=== PATIENT | female | born 1955 | race Caucasian/White ===

== ENCOUNTER → 2022-11-05 | Outpatient (CLI) | payer SELFPAY ==
--- NOTE | 2022-11-05 07:23 | CT_ITS ---
PROCEDURE: CT RIGHT KNEE WITHOUT CONTRAST REASON FOR EXAM: Female, 67 years old. Preoperative planning for the MakoPlasty Robotic knee surgery. Knee pain. TECHNIQUE: Transaxial CT of the hip, knee and ankle were obtained. Coronal and sagittal reconstruction images of the knee were provided. Individualized dose optimization techniques were used for this CT. COMPARISON: None. FINDINGS: Standard protocol for the preoperative planning for the MakoPlasty robotic knee surgery was performed. Osteoarthrosis of the hip, knee and tibiotalar joint. CT/Extremity Lower without Contra IMPRESSION: Preoperative MakoPlasty Robotic knee surgical CT evaluation with findings as described above. Electronically Signed: Karlos Galloway MD at 10:33 EDT ,
== END | disposition home or self-care (01) ==
LOC: CT 07:21
PROVIDERS: PCP Nurse Practitioner Family; Referring Provider Orthopaedic Surgery; Visit Provider Orthopaedic Surgery
DX: M17.11 Unilateral primary osteoarthritis, right knee (principal)
CPT/HCPCS: 73700

== ENCOUNTER 2022-11-25 05:34 | Day surgery (SDC) | payer SELFPAY ==
--- NOTE | 2022-10-31 08:37 | EKG12_ITS ---
Test Reason : PRE-OP Blood Pressure : / mmHG Vent. Rate : 106 BPM Atrial Rate : 106 BPM P-R Int : 126 ms QRS Dur : 074 ms QT Int : 348 ms P-R-T Axes : 060 003 069 degrees QTc Int : 462 ms Sinus tachycardia with occasional Premature ventricular complexes Otherwise normal ECG Confirmed by LOREE MUÑOZ, MADDIE ([id number]), book editor SHRADDHA MURRAY ([id number]) on 11/04/2022 8:41:25 AM Referred By: Charlie Alvarez Confirmed By:MADDIE RALPH MD
[2022-10-31 09:55] LABS: Absolute Lymphocyte Count 1.52 X10^3/uL (0.83-4.51); Basophil# 0.02 X10^3/uL; Basophil% 0.3 % (0-1); Eosinophil# 0.09 X10^3/uL; Eosinophils% 1.4 % (0-5); Hematocrit 40.6 % (37-47); Hemoglobin 13.8 g/dL (12.0-15.0); Lymphocyte # 1.52 X10^3/ul (0.83-4.51); Lymphocyte % 23.6 % (19-41); Mean Corpuscular Hgb 31.7 pg (27.0-32.0); Mean Corpuscular Volume 93.3 fL (81-99); Mean Platelet Vol. 10.4 fl (6.2-12.0); Monocyte# 0.79 X10^3/uL; Monocyte% 12.3 % (0-10); NRBC Flagged by Analyzer 0 % (0-5); Neutrophil % 62.1 % (47-70); Platelet Count 220 K/mm3 (150-450); RBC Distribution Width CV 13.6 % (11.6-14.6); RBC Distribution Width SD 46.6 fl (35.1-43.9); Red Blood Count 4.35 M/mm3 (4.2-5.4); White Blood Count 6.4 K/mm3 (4.4-11.0)
[2022-10-31 10:07] LABS: Partial Thromboplast Time 27.4 Seconds (24.1-36.2); Prothrombin Time (Protime)PT. 13.2 SECONDS (11.7-14.9)
[2022-10-31 10:17] LABS: Hemoglobin A1c 5.8 % (3.8-5.6)
[2022-10-31 10:27] LABS: Anion Gap 5 (5-15); BUN 14 mg/dL (7-18); BUN/Creat Ratio 20.8 RATIO (10-20); Calcium,Total 8.9 mg/dL (8.5-10.1); Chloride 109 mmol/L (98-107); Creatinine, Serum 0.67 mg/dL (0.55-1.02); EST Glomerular Filtration Rate 92 mL/min (>60); Est Glom Filt Rate - Afr Amer 112 mL/min (>60); Glucose 129 mg/dL (74-106); Potassium 3.7 mmol/L (3.5-5.1); Sodium Level 139 mmol/L (136-145)
[2022-10-31 10:29] LABS: Magnesium 2.4 mg/dL (1.6-2.6)
[2022-11-01 04:08] LABS: Fructosamine 259 umol/L (0-285)
[2022-11-25] VITALS (11 sets, daily range): BP systolic 128–159; BP diastolic 64–73; PULSE 82–105; RESP 12–21; TEMP 36.1–36.8; O2SAT 95–100; BMI 30.6
--- NOTE | 2022-11-25 | KNEE_PTH ---
PATIENT: BLANCA JOSUE LOC: [facility] – [place] U#:[id number] AGE/SX: 67/F ROOM: RE11/25/[address]: Dr. Charlie Alvarez DO : 1955 BED: DIS: 11/25/2022 SPEC #: [id number] RECD: 11/25/22 13:11 STATUS: NORMA TRAV #: [id number] NAYE: 11/25/22 00:[address]: Charlie Alvarez DEPT: SURGICAL PATHOLOGY RECD BY: Gabriele Teran ENTERED: 11/25/22 13:11 SP TYPE: TOTAL KNEE OTHR DR: Ese Gibbs, PARTS ASSEMBLER-C Tissues: Knee, NOS Procedures: Decalcification bone/plaque Surgery Specimen Level IV HEADER OPERATION: ERAS, right total knee replacement robotic arm assist PRE-OP DIAGNOSIS: Osteoarthritis right knee TISSUE SUBMITTED: Debrided bone and tissue right knee MICROSCOPIC DIAGNOSIS Bone and soft tissue, right knee, total knee replacement/resection: Pieces of bone with degenerative osteoarthritic changes. Fragments of fibrocartilaginous tissue and reactive synovial tissue. SHARON:scot 11/28/2022 MICROSCOPIC DESCRIPTION Slides are reviewed. GROSS DESCRIPTION Received is one container designated bone and soft tissue right knee. The specimen consists of multiple fragments of almaguer-yellow bone measuring in aggregate 9.0 x 8.0 x 3.0 cm. Also in the specimen container are multiple fragments of indurated, cartilaginous tissue measuring in aggregate 4.5 x 2.5 x 0.8 cm. A number of bony fragments contain articular surfaces consistent with tibial plateau and femoral condyle and displaying prominent osteophyte formation and bone erosion. Systems Analyst Engineer sections are submitted in two cassettes as follows: 1 - soft tissue, 2 - bone after decalcification. / SHARON:scot 11/25/2022 :5 [facility]: [id number]
[2022-11-25] MEDS: Lactated Ringers 1,000 ML 15 ML IV (05:45)
[2022-11-25] MEDS: Magnesium 1 GM over 15 mins IV (06:20)
[2022-11-25] MEDS: Acetaminophen 500 MG Tablet 1000 MG PO (06:45)
[2022-11-25] MEDS: Celecoxib 200 MG Capsule 400 MG PO (06:45)
[2022-11-25] MEDS: Scopolamine 1mg/72hr Patch 1 PATCH TD (06:45)
[2022-11-25] MEDS: Gabapentin 600 MG Tablet PO (06:45)
[2022-11-25 07:01] LABS: Bedside Glucose 116 mg/dL (74-106)
--- NOTE | 2022-11-25 07:12 | PCM.HP.BLA ---
History and Physical Date of Admission: 11/25/22 [facility] [address] [place] [address] OFFICE VISIT Date of Service:? 10/15/22 MR#: [id number] Acct: [id number] Name:BLANCA SMITH Rep #: [id number] : 1955 ? ? Provider: Dr. Charlie Alvarez, Age/Sex:? 67/F ? ? [place] [facility] [place] Status: Signed Intake Vital Signs ? 10/15/2308:34 Height 5 ft 5 in Weight: 183 lb BMI 30.4 Intake Visit Reasons:?RIGHT KNEE Is patient in pain?: Yes Allergies No Known Allergies Allergy (Unverified 10/15/22 09:34) Medications acetaminophen 650 mg tablet,extended release (Tylenol Arthritis Pain) 650 mg PO Q12H 10/15/22 [History Confirmed 10/15/22] losartan 50 mg tablet 50 mg PO 10/15/22 [History Confirmed 10/15/22] multivitamin 1 tab PO DAILY 10/15/22 [History Confirmed 10/15/22] PFSH Surgical History?(Updated 10/15/22 @ 09:36 by Carmen Wills) History of History of total knee arthroplasty S/P right knee arthroscopy Social History?(Updated 10/15/22 @ 09:36 by Carmen Wills) household members:? none Smoking Status:? Never smoker alcohol intake:? never HPI RIGHT KNEE Details: Parts of this documentation were recorded by a scribe, this documentation accurately reflects the service provided and the decisions made by me, Dr. Charlie Alvarez, DO 10/15/22 1462. BLANCA JOSUE is a 67 year old F here today new patient for right knee pain. Patient states that she has had pain for awhile and then she had right knee arthroscopy with partial medial meniscectomy on 06/26/[address] Robles. Patient had pain over her medial knee prior to surgery which was helpful for a few weeks. She was able to ambulate after her surgery but then she had a change. Patient denies any injury. She complains of pain of her entire knee and on her bad days she has pain over her lateral thigh. Patient denies any lumbar spine issues or pain. She sees a chiropractor once a month for adjustments. Patient denies any popping or clicking. Patient denies any physical therapy or injections. She states that she rides a bike daily. She denies any bracing. Patient takes tylenol arthritis which is helpful. Patient denies any recent xrays or MRI. She brought her op report with her, along with the MRI she had prior to her surgery. 06/26/[address] Florencio Robles right knee arthroscopy: Operative report comments ACL looked okay.? Lateral tibial plateau was starting to get some areas of chondromalacia in the central weightbearing portion.? She would not be a candidate for a uni down the road.? Medially she had a vertical groove in the medial femoral condyle with grade III-IV chondromalacia.? This was not the entire weightbearing portion.? Complex tear posterior horn medial meniscus partial meniscectomy was performed Ortho Exam General General: Yes no acute distress Neurologic: Yes alert and Yes oriented x3 Psychologic: Yes reasonable and appropriate Right Knee Skin/Wound: Yes CDI, No erythema, No ecchymosis and No swelling Knee ROM: Yes ROM-Extension -20 to 0 (full) and Yes ROM-Flexion 0-140 (full) Examination: Yes Med jt line tenderness and No Lat jt line tenderness Stability: NML: Posterior Drawer, NML: Valgus 0 and NML: Varus 30 and 2+: Anterior Drawer and 2+: Valgus 30 Patella Translation: 1 Patella Grind: Yes KNEE: varus deformity that is fixed in extension. prior arthroscopic portals- healing with no signs of infection, patellar grind with crepitus. no patellar instability. Left Knee Knee ROM: Yes ROM-Flexion 0-140 (118) Patella Translation: 1 Head: Normocephalic Atraumatic Chest: symmetrical rise, non-labored breathing, no audible wheeze Abdomen: no guarding, non-rigid Supplemental Info 10/15/2022 x-ray right knee: Moderate to severe medial joint space narrowing with varus deformity there is degenerative spurring noted in the trochlea on the patellofemoral view 06/26/[address] Florencio Robles right knee arthroscopy: Operative report comments ACL looked okay.? Lateral tibial plateau was starting to get some areas of chondromalacia in the central weightbearing portion.? She would not be a candidate for a uni down the road.? Medially she had a vertical groove in the medial femoral condyle with grade III-IV chondromalacia.? This was not the entire weightbearing portion.? Complex tear posterior horn medial meniscus partial meniscectomy was performed 05/07/2022 MRI right knee: Report only from a [facility] abnormal signal present in the ACL femoral attachment consistent with tear. Coding Level of Care Code Off vis,new,level 3 Diagnoses Osteoarthritis of right knee? M17.11 Assessment and Plan Assessment and Plan (1) Osteoarthritis of right knee: ? ? ? Orders: Orders Knee 4 or More Views Today M25.561 - Pain in right knee ? Plan Educated the patient about the anatomy of the knee and etiology of her pain. Spoke with her about having osteoarthritis and her options- steroid injection to help with inflammation from arthroscopy, viscosupplementation, physical therapy, or a total knee arthroplasty. She may also have a knee brace for an stock unloader brace. Spoke with her about adding an anti-inflammatory with her tylenol. She did not want to proceed with a steroid injection at this time. Spoke with her about stem cell injections and the likelihood it wont help with her degree of osteoarthritis. She should contact our office if she would like to proceed with the visco injections. Patient was fit with a OA reaction brace which she liked the fit. Follow up on an as needed basis or sooner if pain, swelling, numbness or associated symptoms, or concerns develop.? All questions answered. Patient in agreement of plan. 10/15/22 1042 <Electronically signed by Charlie Alvarez DO> Date Charlie Alvarez DO Cosigner Signature: Date (if applicable) ?I have examined the patient and the H&P has been reviewed. There are no clinical changes since date of exam.
[2022-11-25] MEDS: TXA 1000mg in NS100 100ml (IVPB at Incision) 660 MG IV (07:46)
[2022-11-25] MEDS: Cefazolin 2 GM in 0.9% Normal Saline 100 ML IV (07:47)
[2022-11-25] MEDS: TXA 1000mg in NS100 100ml (IVPB at Closure) 660 MG IV (08:34)
[2022-11-25] MEDS: 0.9% Normal Saline (Pres. free 10 ML Vial (08:54)
[2022-11-25] MEDS: Epinephrine (1 mg/ml) 1 MG/ML VIAL (08:54)
[2022-11-25] MEDS: dexAMETHasone 4 MG/ML Vial (08:54)
[2022-11-25] MEDS: Bupivacaine 0.5% PF 10 ML VIAL (08:54)
--- NOTE | 2022-11-25 09:47 | RAD_ITS ---
STUDY: X-RAY - RIGHT KNEE REASON FOR EXAM: Female, 67 years old. Total knee arthroplasty, follow-up. TECHNIQUE: 2 view(s) of the knee. COMPARISON: None. FINDINGS: There is a 3 component total knee arthroplasty in anatomic position. There are expected post-operative findings. There are no complications. No other significant abnormality is identified. RAD/Knee 1 or 2 Views IMPRESSION: Total knee arthroplasty in anatomic alignment without complications. Electronically Signed: Karlos Galloway MD at 11:28 EDT ,
--- NOTE | 2022-11-25 09:48 | PCM.OP.BLANK ---
Operative Report Date of Procedure: 11/25/22 Preoperative diagnosis: Right knee DJD Postoperative diagnosis: Same Procedure: Left total knee arthroplasty CT guided Robotic Assisted Implant: [place] triathlon press fit, femoral component size 2, tibial baseplate size 3, asymmetric patella size 32, polyethylene X3 size 9 CS Anesthesia: Spinal with adductor canal block Tourniquet time: 12 minutes at 300 mmHg Complications: None Condition: Stable to PACU Estimated blood loss: 200 cc Indication for procedure: This is a 67-year-old female with long standing degenerative joint disease of the knee who has failed conservative treatment and wished to proceed with elective total knee arthroplasty. Risk benefits and alternatives were reviewed including; risk of bleeding, infection, nerve artery and tissue damage, continued pain, postoperative stiffness, venous thromboembolism, need for postoperative rehabilitation, mechanical feel to the knee, and expected postoperative course. The pre- operative CT and templating was performed with component sizing. Procedure: The patient was met in the preoperative holding area. The operative extremity was identified by both patient and physician and was marked. Patient was met by anesthesia. An adductor canal block was placed by anesthesia postoperatively the patient was brought back to the operating room on a wheeled cart and transferred to the operating table in the supine position. Anesthesia was started. A well-padded tourniquet was placed on the operative extremity. The patient was prepped and draped in the usual sterile fashion. A timeout was called to ensure the proper patient procedure and extremity were being contemplated. An esmarch was used to exsanguinate the extremity. The tourniquet was inflated. A 10 blade scalpel was used to make a midline incision down through the skin and subcutaneous tissue. Skin retractors placed. Bovie and Aquamantis were used to perform meticulous hemostasis. full-thickness flaps were elevated medial and lateral along the joint capsule. A deep blade scalpel was used to perform a medial parapatellar arthrotomy. The knee was brought to full extension. A bovie was used to release the soft tissues off the most proximal aspect of the medial tibial plateau, a three-quarter inch curved osteotome was also used in this process. The infrapatellar fat pad was excised. The suprapatellar fat pad was excised partially anteriorolateraly and portion the anterioromedial pad was elevated from the femur. At this point our intra-articular femoral array was placed at a 45 degree angle proximal and posterior to the medial epicondyle. femoral checkpoint was placed at this time. Our tibial array was placed greater than 1 hands breath below the incision at a 20 degree angle stab incisions were made with a 15 blade scalpel and pins were placed and attached to the tibial array , tibial checkpoint was placed in the proximal tibial metaphysis. Tourniquet was let down. At this point registration avelar were taken throughout the knee . Once the knee was registered we then tensioned the medial and lateral ligaments in extension and 90 degrees of flexion. We then used these numbers to adjust our components within parameters to balance the knee in both flexion and extension once this was done on our monitor we then proceeded with using the robotic arm to make our tibial plateau cut, anterior and posterior chamfer and distal femur cuts. we removed the cut fragments with the use of a bovie and Kory, we did use a lamina systems architect to insure we visualized and removed all posterior osteophytes and at this time also used the Aquamantis on the posterior joint capsule. we then trialed and achieved the desired plan with a well-balanced knee. we used the green probe to mehdi the corresponding tibial rotation based on our CT template. Lug holes were drilled in the femur the tibia preparation was completed with the appropriate sized base plate pinned based on previous rotation mehdi. An appropriate sized fin punch was used on the tibia and 4 corner drill was used for the press fit component and the patella was prepared by first using a caliper to ensure sufficient bone stock and a patellar reamer to remove the desired amount of bone. lug holes drilled for an asymmetric poly. We then brought the knee through range of motion with excellent patellar tracking. We thoroughly irrigated the knee. Trial components were removed a posterior capsular injection was preformed with our standard cocktail. In addition the aqua Mantis was also used to aid in hemostasis. Betadine rinse was allowed to sit and washed out completely. Components were press-fit into place. Aricept rinse was then used followed by several more liters of irrigation after it was allowed to sit. The joint capsule was closed with #1 Ethibond [id number] followed by Vicryl in the subcutaneous tissues with joshua in the skin. Arrays and checkpoints were removed prior to closure all counts were correct stab incisions were closed with a staple standard dressing in the form of Mepilex AG for the main incision and a small Mepilex over the pin holes. Thigh-high MARCOS hose applied over top of dressing. Patient tolerated the procedure well and was directed to PACU in stable condition . There were no intraoperative complications.
--- NOTE | 2022-11-25 09:51 | DCINST_ITS ---
Discharge Instructions Diet Discharge Diet: No restrictions Activity Weight Bearing Status: Weight bearing as tolerated Dressing / Incision Call your doctor if you observe: Shortness of breath and Chest pain Additional Dressing/Incision Instructions:: Ice and elevate lower extremities 2 weeks while not ambulating. Ambulation is encouraged. Weight bearing as tolerated. Use assistive devise for stability. Encourage FULL knee extension and flexion 1 time EVERY time you get up and down and MULTIPLE times per day. No showering 72 hours after surgery. Begin showering postop day #3. Remove the dressing prior to shower and gently wash with warm water and antibacterial soap then pat dry and place abdominal pad (or plain gauze) and MARCOS hose over top. This is to be done daily. Do not submerge for 3 weeks. If not showering daily after the initial 72 hours then you must clean incision and change dressing daily. Do not allow animals near the incision area. Keep clean. Follow anti- coagulation recommendations as prescribed. Do not take any NSAIDs while on blood thinner. Do not take any additional narcotic pain medication other than what was prescribed on your surgery day without discussing with physician. Narcotic medication can be addictive. Do not drink alcohol while taking narcotics. Supplement narcotic prescription with acetaminophen 1000 mg 4 times a day. Start physical therapy. If you are not currently scheduled for physical therapy or you are unsure of appointment time please call office [facility] to arrange. Call Dr. Alvarez with any concerns. Follow Up Care Please Follow Up With: Charlie Alvarez DO When: 2 weeks Test Results: Test results from this visit will be discussed in further detail at your follow- up appointment, if applicable. Discharge Plan Admission Primary Reason for Your Visit: Right total knee arthroplasty Attending Provider: Charlie Alvarez Primary Care Provider: Ese Gibbs NP Discharge Orders/Prescriptions Prescriptions: New acetaminophen [acetaminophen] 500 mg tablet 1,000 mg PO Q6H PRN Qty: 100 0RF cephalexin [cephalexin] 500 mg capsule 1,000 mg PO Q8 Qty: 4 0RF Rx Instructions: take 2 tabs at 9:00 pm and 2 tabs after 5 am when you wake up Eliquis 2.5 mg tablet 2.5 mg PO BID Qty: 30 0RF Rx Instructions: Begin morning after surgery oxycodone 5 mg tablet 5 mg PO Q4H PRN (Reason: pain) 7 Days Qty: 60 0RF Continued losartan 50 mg tablet 50 mg PO DAILY Label Comments: TAKE ONE TABLET BY MOUTH DAILY multivitamin Tablet 1 tab PO DAILY Discontinued acetaminophen [Tylenol Arthritis Pain] 650 mg tablet extended release 650 mg PO Q12H Referrals / Follow Up: Ese Gibbs PROFESSOR OF ANTHROPOLOGY, PROFESSOR OF ANTHROPOLOGY-C [Primary Care Provider] - Disposition Disposition (needs filled in before D/C Order can be placed): Home, Self Care
[2022-11-25] MEDS: Lactated Ringers 1,000 ML 125 ML IV (10:07)
[2022-11-25] MEDS: Cefazolin 1 GM/50 ML BAG IV (11:50)
[2022-11-25] MEDS: Ondansetron 4 MG/2 ML Vial IV (12:15)
== END 2022-11-25 16:20 | disposition home or self-care (01) ==
LOC: SDC 05:42 → AC 05:43
PROVIDERS: Anesthesiology; PCP Nurse Practitioner Family; Referring Provider Orthopaedic Surgery; Visit Provider Orthopaedic Surgery
PROC: 0SRC0JZ Replacement of Right Knee Joint with Synthetic Substitute, Open Approach (ICD-10-PCS; CPT 27447; principal; 2022-11-25 07:00)
DX: M17.11 Unilateral primary osteoarthritis, right knee (principal); M25.561 Pain in right knee; I10 Essential (primary) hypertension
CPT/HCPCS: 27447; 01402; 64450; 36415; 73560; 80048; 82962; 82985; 83036; 83735; 85025; 85610; 85730; 86850; 86900; 86901; 87077; 87081; 88305; 88311; 93005; 97161; C1776; J7050; J7120; J2405; J3475; J3490